=== PATIENT | female | born 1985 | race Caucasian/White ===

== ENCOUNTER 2019-09-01 20:15 | Emergency (ER) | payer BC, SELFPAY ==
[2019-09-01 20:17] VITALS: BP 174/86; PULSE 109; RESP 16; TEMP 37.1; O2SAT 98; BMI 37.5
--- NOTE | 2019-09-01 20:19 | ECG_ITS ---
APPROVED REPORT Exam: Resting ECG HR:109 bpm ECG Measurements Heart Rate 109 AXES MD 122 P 46 QRSd 70 QRS 21 QT 310 T 25 QTc 417 <Conclusion> Sinus tachycardia Otherwise normal ECG Electronically signed by : Hamilton Jason, 09/03/2019 14:15:53
--- NOTE | 2019-09-01 20:21 | XR_ITS ---
PROCEDURE: XR CHEST 2V CLINICAL HISTORY: chest tightness COMPARISON: No exams were available for comparison FINDINGS: The cardiomediastinal silhouette and pulmonary vascularity are within normal limits. The lungs are clear without infiltrates, suspicious nodules, or pleural effusions. No acute bony abnormalities. IMPRESSION: No acute findings. Dictated by: Redd Avila MD 09/01/2019 22:22 Electronically signed by Redd Avila MD in [place] 09/01/2019 22:22
[2019-09-01 20:34] LABS: Chloride 106 mmol/L (98-107)
[2019-09-01 20:35] LABS: Potassium 3.6 mmoL/L (3.5-5.1); Sodium 140 mmol/L (136-145)
[2019-09-01 20:36] LABS: Basophils # 0.3 K/mm3 (0-0.2); Basophils % 2.2 % (0.1-2.0); Eosinophils # 1.3 K/mm3 (0.0-0.4); Eosinophils % 9.7 % (0.1-12.0); Hematocrit 41.4 % (37.0-47.0); Hemoglobin 14.4 g/dL (12.2-16.2); Lymphocytes # 2.6 K/mm3 (0.7-4.5); Mean Corpuscular HGB Conc 34.7 g/dL (31.8-35.4); Mean Corpuscular Hemoglobin 29.6 pg (27.0-31.2); Mean Corpuscular Volume 85.3 fl (81-99); Mean Platelet Volume 9.4 fl (7.4-10.4); Monocytes # 0.5 K/mm3 (0.1-1.0); Monocytes % 3.5 % (1.7-9.3); Neutrophils # 8.6 K/mm3 (1.8-7.8); Neutrophils % 64.7 % (37.0-80.0); Platelet Count 235 K/mm3 (142-424); Red Blood Count 4.85 M/mm3 (4.20-5.40); Red Cell Distribution Width 13.4 % (11.5-17.5); White Blood Count 13.3 K/mm3 (4.8-10.8)
[2019-09-01 20:38] LABS: Amylase 64 U/L (30-110); Anion Gap 11.6 mEq/L (5-15); Blood Urea Nitrogen 8 mg/dl (7-17); Calcium 8.7 mg/dl (8.4-10.2); Carbon Dioxide 26 mmol/L (22.0-30.0); Creatinine Clearance Estimated 195 mL/min (50-200); Estimated Glomerular Filt Rate 96 ml/min (>60); GFR (African American) 116 ML/MIN (>60); Glucose 74 mg/dl (74-100)
[2019-09-01 20:43] LABS: C-Reactive Protein 4.8 mg/L (0-4); HCG Qualitative, Serum Negative (Negative)
[2019-09-01 20:58] LABS: Troponin I < 0.01 ng/ml (0.00-0.034)
[2019-09-01 21:10] LABS: Lipase 52 U/L (23-300)
[2019-09-01 21:14] VITALS: BP 118/100; PULSE 92; RESP 19; O2SAT 98
[2019-09-01 21:23] LABS: Erythrocyte Sedimentation Rate 23 mm/hr (0-20)
[2019-09-01 22:01] VITALS: BP 139/74; PULSE 82; RESP 12; O2SAT 97
--- NOTE | 2019-09-01 22:17 | HMH.EDCP ---
ED Disposition Clinical Impression: Atypical chest pain Disposition: Home, Self-Care Condition on Discharge: Good Instructions: DI for Atypical Chest Pain Additional Instructions: see card for follow up Referrals: Provider,Referral, [Primary Care Provider] - - Critical Care Critical Care Time: No Attestation: On 09/01/19, the high probability of a clinically significant, sudden or life threatening deterioration of the following system(s) required my full and direct attention, intervention and personal management. The time I documented below is in addition to time spent performing reported procedures but includes the following listed in this critical care notation. Medical Decision Making - Medical Records Medical records reviewed: Yes: I reviewed the patient's medical records. - Nain Inquiry Pt receiving controlled substance: No Vital Signs: 09/01/19 20:17 09/01/19 21:14 09/01/19 22:01 Temperature 98.8 F Temperature Source Oral Pulse Rate [Right Brachial] 109 H 92 H 82 Respiratory Rate 16 19 12 Blood Pressure [Right Arm] 174/86 H 118/100 H 139/74 Blood Pressure Mean [Right Arm] 115 106 95 Blood Pressure Source [Right Arm] Manual Cuff/ Palpation Automatic Cuff Blood Pressure Position [Right Arm] Supine Supine 02 Sat by Pulse Oximetry 98 98 97 Oxygen Delivery Method Room Air Room Air Room Air - Lab Data Lab results reviewed: Yes: I reviewed the patient's lab results. Lab Results 09/01/19 20:20: WBC 13.3 H, RBC 4.85, Hgb 14.4, Hct 41.4, MCV 85.3, MCH 29.6, MCHC 34.7, RDW 13.4, Plt Count 235, MPV 9.4, Neut % (Auto) 64.7, Lymph % (Auto) 20.0, [place] % (Auto) 3.5, Eos % (Auto) 9.7, Baso % (Auto) 2.2 H, Neut # (Auto) 8.6 H, Lymph # (Auto) 2.6, [place] # (Auto) 0.5, Eos # (Auto) 1.3 H, Baso # (Auto) 0.3 H 09/01/19 20:20: Sodium 140, Potassium 3.6, Chloride 106, Carbon Dioxide 26, Anion Gap 11.6, BUN 8, Creatinine 0.70, Estimated Creat Clear 195, Estimated GFR 96, Est GFR ( Amer) 116, Glucose 74, Calcium 8.7, Troponin I < 0.01, C-Reactive Protein 4.8 H, Amylase 64 09/01/19 20:20: Serum HCG, Qual Negative 09/01/19 20:20: ESR 23 H 09/01/19 20:20: Lipase 52 Result diagrams: 09/01/19 20:20 09/01/19 20:20 Orders (Tests/Meds): ED MEDICATIONS Generic Name Dose Route Start Last Admin Trade Name Freq PRN Reason Stop Dose Admin Sodium Chloride 1,000 mls @ 999 mls/hr 09/01/19 20:30 09/01/19 20:29 Sod Chlor 0.9% 1000ml Bag IV 09/01/19 21:30 999 mls/hr .Q1H1M SIXTO Administration Sodium Chloride 8 ml 09/01/19 20:22 Sodium Chloride 0.9% 10ml Vial IV 10/01/19 20:21 NEEDED PRN dilute pepcid Discontinued Medications Generic Name Dose Route Start Last Admin Trade Name Freq PRN Reason Stop Dose Admin Famotidine 20 mg 09/01/19 20:22 09/01/19 20:28 Pepcid 20mg/2ml Vial IV 09/01/19 20:23 20 mg ONCE ONE Administration Metoclopramide HCl 10 mg 09/01/19 20:22 09/01/19 20:28 Reglan 10mg/2ml Vial IVP 09/01/19 20:23 10 mg ONCE ONE Administration ORDERS Category Date Time Status XR chest 2V Stat Exams 09/01/19 20:21 Taken Troponin I Q3H Lab 09/01/19 23:30 Ordered Troponin I Q3H Lab 09/02/19 02:30 Ordered - Radiology Data #1 Image(s): Chest Image Reviewed: Yes I reviewed the patient's radiology image Preliminary Findings: Normal/NAD - ECG Data Tracing #1 Normal Sinus Rhythm: Yes Ischemic changes: non-specific ST-T wave changes Chest Pain HPI - General Chief Complaint: Chest Pain Stated Complaint: chest tightness Time Seen by Provider: 09/01/19 20:35 Mode of Arrival: Family Vehicle Source of Information: Patient, Medical Record Limitations: No Limitations Description of Symptoms (Recalled from ER Triage Doc. by RN): pt describes tightness in chest for last two days, some minimal diarrhea today; thinks she might be overreacting but wants to be evaluated - History of Present Illness HPI narrative: 2 day
[2019-09-01 22:39] VITALS: BP 130/75; PULSE 85; RESP 16; TEMP 37.1; O2SAT 97
== END 2019-09-01 22:41 | disposition home or self-care (01) ==
PROVIDERS: Emergency Provider Emergency Medicine
DX: R07.89 Other chest pain (principal)
CPT/HCPCS: 71046; 80048; 82150; 83690; 84484; 84703; 85025; 85651; 86140; 93005; 96365; 96375; 99283

== ENCOUNTER → 2021-03-30 12:30 | Outpatient (CLI) | payer BC, SELFPAY | PROVIDERS: Visit Provider Nurse Practitioner Family | DX: Z20.822 Contact with and (suspected) exposure to COVID-19 (principal) | CPT/HCPCS: C9803; U0003; U0005 ==

== ENCOUNTER 2021-04-03 08:58 | Emergency (ER) | payer BC, SELFPAY ==
[2021-04-03 09:37] VITALS: BP 153/79; PULSE 83; RESP 18; TEMP 36.4; O2SAT 98; BMI 43.8
--- NOTE | 2021-04-03 10:07 | HMH.EDUTC ---
[facility] Disposition Clinical Impression: Strep throat Disposition: Home, Self-Care Condition on Discharge: Good Instructions: Strep Throat, DI for Strep Throat Additional Instructions: Drink plenty of fluids. Take tylenol or ibuprofen for pain or fever. Take the medications as directed. Follow up with your regular doctor. GO TO THE ER FOR ANY WORSENING SYMPTOMS Don't start the oral steroids until tomorrow, since you had the shot here today. Prescriptions: Brompheniramine/Pseudoephed/Dm [Bromfed Dm Cough Syrup] 5 ml PO Q6HP PRN #240 ml PRN Reason: Cough Transmission Status: Received by [facility] [employer] Amoxicillin/Potassium Clav [Augmentin 875-125 Tablet] 1 tab PO Q12H 10 Days #20 tab Transmission Status: Received by [facility] [employer] methylPREDNISolone [Medrol] 4 mg PO DIRECTED 6 Days #21 packet Transmission Status: Received by [facility] [employer] Referrals: Provider,Referral, [Primary Care Provider] - Forms: Work/School Release Time of Disposition: 10:12 Medical Decision Making - Medical Records Medical records reviewed: No: I reviewed the patient's medical records. - Nain Inquiry Pt receiving controlled substance: No Vital Signs: 04/03/21 09:37 04/03/21 10:08 Temperature 97.6 F 97.6 F Temperature Source Oral Pulse Rate 83 Pulse Rate [Left] 83 Respiratory Rate 18 18 Blood Pressure 153/79 H Blood Pressure [Right Arm] 153/79 H Blood Pressure Mean [Right Arm] 103 02 Sat by Pulse Oximetry 98 - Lab Data Lab results reviewed: Yes: I reviewed the patient's lab results. Lab Results 04/03/21 09:40: Influenza Type A Ag Negative, Influenza Type B Ag Negative 04/03/21 09:40: Strep [facility] Positive A Orders (Tests/Meds): ED MEDICATIONS Discontinued Medications Generic Name Dose Route Start Last Admin Trade Name Freq PRN Reason Stop Dose Admin Ceftriaxone Sodium 1 gm 04/03/21 09:53 04/03/21 10:07 Ceftriaxone 1gm Vial IM 04/03/21 09:54 1 gm ONCE ONE Administration Lidocaine HCl 2 ml 04/03/21 09:54 04/03/21 10:08 Lidocaine 1% Pf 2ml Ampule IM 04/03/21 09:55 2 mg ONCE ONE Administration Methylprednisolone Sodium Succinate 125 mg 04/03/21 09:53 04/03/21 10:07 Methylprednisolone Sod Succ 125mg Vial IM 04/03/21 09:54 125 mg ONCE ONE Administration [facility] HPI - General Stated complaint: ear pain Time Seen by Provider: 04/03/21 10:07 Mode of Arrival: Ambulatory Source of Information: Patient Limitations: No Limitations Description of Symptoms (Recalled from Triage Doc. by RN): pt c/o sinus pressure, ears throbbing, nasal drainage, sore throat and a cough. pt tested negative for covid here at [facility]. HEENT Symptoms (Recalled from RN notes): Yes Resp Symptoms (Recalled from RN notes): Yes Skin Symptoms (Recalled from RN notes): No MS Symptoms (Recalled from RN notes): No Functional Status (Recalled from RN notes): wnl - History of Present Illness Provider Complaint: She c/o ear pain and sore throat for the past 2 days. - Related Data Previous Rx's Medication Instructions Recorded Amoxicillin/Potassium Clav 1 tab PO Q12H 10 Days #20 tab 04/03/21 [Augmentin 875-125 Tablet] Brompheniramine/Pseudoephed/Dm 5 ml PO Q6HP PRN #240 ml 04/03/21 [Bromfed Dm Cough Syrup] methylPREDNISolone [Medrol] 4 mg PO DIRECTED 6 Days #21 04/03/21 packet Allergies Allergy/AdvReac Type Severity Reaction Status Date / Time No Known Allergies Allergy Verified 04/03/21 09:40 - Worker's Comp Is this a Worker's Comp case?: No [facility] History - Hepatitis A Screen Drug use history?: No High risk sexual behaviors?: No History of sexually transmitted infection?: No Currently employed?: No Childcare worker?: No Do you have indoor plumbing?: Yes Do you have electricity?: Yes Attestation statement:: This patient has been screened for Hepatitis A risk factors. I have reviewed the patient's past medical histor
[2021-04-03 10:08] VITALS: BP 153/79; PULSE 83; RESP 18; TEMP 36.4
[2021-04-03 10:10] LABS: UTC Influenza A Antigen Negative (Negative); UTC Strep Screen (Rapid) Positive (Negative)
[2021-04-03 10:11] LABS: UTC Influenza B Antigen Negative (Negative)
== END 2021-04-03 10:39 | disposition home or self-care (01) ==
PROVIDERS: Emergency Provider Nurse Practitioner Family
DX: J02.0 Streptococcal pharyngitis (principal)
CPT/HCPCS: 87804; 87880; 96372; 99202; G0463; J0696